=== PATIENT | female | born 1965 | race Caucasian/White ===

== ENCOUNTER 2024-01-16 18:57 | Emergency (ER) | payer SELFPAY ==
[~2024-01-16] VITALS: Ht 162.6 cm; Wt 127.3 kg
[2024-01-16 19:00] VITALS: BP 155/87; PULSE 68; RESP 18; TEMP 98.6; O2SAT 99
[2024-01-16 19:16] LABS: COVID AG,FIA SOURCE NASAL SWAB
[2024-01-16 19:41] LABS: SARS-COV2 (COVID) ANTIGEN,FIA Negative (Negative)
[2024-01-16 19:44] LABS: INFLUENZA TYPE A NEGATIVE FOR TYPE A (NEGATIVE); INFLUENZA TYPE B NEGATIVE FOR TYPE B (NEGATIVE)
== END 2024-01-16 21:32 | disposition left against medical advice (07) ==
LOC: EMS 18:57
DX: Z53.21 Procedure and treatment not carried out due to patient leaving prior to being seen by health care provider (principal); Z20.822 Contact with and (suspected) exposure to COVID-19
CPT/HCPCS: 87804

== ENCOUNTER → 2024-07-06 | Emergency (ER) | payer OTHER ==
[~2024-07-06] VITALS: Ht 172.7 cm; Wt 153.6 kg
[~2024-07-06] MED LIST: ONDA-104 PO
[2024-07-06 06:10] VITALS: BP 132/66; PULSE 89; RESP 18; TEMP 98.6; O2SAT 97
[2024-07-06 06:36] LABS: COVID AG,FIA SOURCE NASAL SWAB
[2024-07-06 07:00] LABS: BASOPHILS % (AUTO) 0.3 % (0.0-2.0); EOSINOPHILS % (AUTO) 0.6 % (1.0-6.0); HEMATOCRIT 45.7 % (36-46); HEMOGLOBIN 15.4 g/dL (12.0-16.0); LYMPHOCYTES # (AUTO) 1.6 K/uL (1.0-4.8); MEAN CORPUSCULAR HEMOGLOBIN 31.2 pg (26.0-34.0); MEAN CORPUSCULAR HGB CONC 33.6 G/dL (31.0-37.0); MEAN CORPUSCULAR VOLUME 93 fL (80-100); MONOCYTES # (AUTO) 0.4 K/uL (0.1-1.0); MONOCYTES % (AUTO) 4.9 % (2.0-9.0); NEUTROPHILS # (AUTO) 6.2 K/uL (1.8-7.7); NEUTROPHILS % (AUTO) 75.2 % (40.0-70.0); PLATELET COUNT (AUTO) 271 K/uL (150-450); RED BLOOD CELL COUNT(AUTO) 4.92 MIL/uL (4.00-5.20); RED CELL DISTRIBUTION WIDTH 13.3 % (11.5-14.5); WHITE BLOOD COUNT (AUTO) 8.3 K/uL (4.5-11.0)
[2024-07-06 07:05] LABS: INFLUENZA TYPE A NEGATIVE FOR TYPE A (NEGATIVE); INFLUENZA TYPE B NEGATIVE FOR TYPE B (NEGATIVE); SARS-COV2 (COVID) ANTIGEN,FIA Negative (Negative)
[2024-07-06 07:09] LABS: CALCIUM, TOTAL 9.5 mg/dL (8.8-10.5); CREATININE 1.07 mg/dL (0.60-1.30); POTASSIUM 3.8 mmol/L (3.5-5.1)
[2024-07-06] MEDS: ONDANSETRON 4 MG TABLET PO ONE (08:46)
[2024-07-06] MEDS: CIPROFLOXACIN HCL 250 MG TABLET PO ONE (08:46)
[2024-07-06] MEDS: DIPHENOXYLATE/ATROP 2.5-0.025 MG TABLET PO ONE (08:46)
== END | disposition home or self-care (01) ==
LOC: EMS 05:45
DX: R19.7 Diarrhea, unspecified (principal); Z20.822 Contact with and (suspected) exposure to COVID-19
CPT/HCPCS: 99284; 87426; 80048; 85025; 87804; 36415; Q0162